=== PATIENT | male | born 1975 | race Caucasian/White ===

== ENCOUNTER → 2018-12-20 | Outpatient (CLI) | payer OTHER ==
--- NOTE | ~2018-12-20 | CON ---
[address] [address] CONSULTATION Name: APRILJEANNE Osborn Room: [facility]#: [id number] Admission: 12/20/18 Attend Phys: Ventura Reyes MD Discharge: Date of : 71 Report #: [id number] THIS REPORT FOR: //name// CC: Ventura Payne DATE OF SERVICE: 12/20/2018 REFERRING PHYSICIANS: Include Dr. Raleigh Pop as well as Dr. Ty from [facility], Dr. Aleta Hastings and Dr. Taty Payne. 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 HISTORY OF PRESENT ILLNESS: The patient indicated he had bright red blood per rectum since about 10/2018. He denied having any significant pain when he had a bowel movement, though he had more frequent bowel movements. He went on to undergo a colonoscopy by Dr. Pop and that revealed an ulcerated partially obstructing large mass in the rectum. The mass was circumferential. Dr. Pop was not able to pass the colonoscope through the narrowed lumen, so he changed to a smaller endoscope. The mass measured about 14 cm in length. It started about 2 cm above the dentate line and then extended to about 16 cm from the dentate line and then it was biopsied and the pathology revealed an invasive moderately differentiated adenocarcinoma. The patient had an abdominal pelvic CT on 12/11/2018 and that revealed circumferential wall thickening of the rectum. There were scattered perirectal and presacral lymph nodes seen, the largest was 1 cm. The patient indicated that he saw the colorectal surgeon, Dr. Hastings and the plan was to proceed with preoperative chemoradiotherapy followed by resection and he said that Dr. Hastings was going to schedule a chest CT and a pelvic MRI, presents to discuss the role of radiation therapy. PAST MEDICAL HISTORY AND PAST SURGICAL HISTORY: The patient has had some anemia, has had arthroscopy operation on his knees about 25 years ago. MEDICATIONS: MiraLax as needed. FAMILY HISTORY: Mother had congestive heart failure. SOCIAL HISTORY: The patient is a security director. He has a son and a daughter. He is . Cigarettes, he does not smoke cigarettes. REVIEW OF SYSTEMS: GENERAL: He denied having fevers or chills. SKIN: The patient denied having any color changes or itching. LYMPH NODES: The patient denied having enlarged or painful glands in the neck. ENDOCRINE: The patient denied [place] [address] CONSULTATION Name: JEANNE CHEN Room: [facility]#: [id number] Admission: 12/20/18 Attend Phys: Ventura Reyes MD Discharge: Date of : 71 Report #: [id number] HEMATOLOGY/IMMUNOLOGY: The patient has anemia from rectal bleeding. MUSCULOSKELETAL: The patient has arthritis. HEAD AND NECK: The patient denied having any headaches, migraines. RESPIRATORY: The patient denied having any shortness of breath or cough. CARDIOVASCULAR: The patient denied having any palpitations. GASTROINTESTINAL: The patient does still have some bright red blood per rectum. NEUROLOGIC: He denied having focal weakness. PHYSICAL EXAMINATION: VITAL SIGNS: Height 5 feet 10 inches, weight 304.8 pounds, blood pressure 142/84, pulse 79, oxygen saturation 97%, respirations 16. LYMPH NODES: No palpable cervical, supraclavicular or inguinal lymphadenopathy. EYES: Pupils are equal, round, react to light and accommodation. GENERAL: The patient was alert, oriented, in no acute distress. LYMPH NODES: He had no palpable cervical, supraclavicular or inguinal lymphadenopathy. HEAD, EYE, EAR, NOSE AND THROAT: Mouth had no visible lesions. HEART: Had a regular rate and rhythm without murmur. LUNGS: Clear to auscultation. ABDOMEN: Nontender. Spleen was not palpable. Liver was at the costal margin. EXTREMITIES: Had no clubbing, cyanosis or edema. NEUROLOGIC: Cranial nerves 2-12 are intact. Sensation was intact. RECTAL: On rectal examination, the patient had a palpable mass approximately 2-3 cm from the anal verge. I cannot feel above the mass since my finger was not long enough. The patient was guaiac positive. Using [employer] Hemoccult cards from lot number [id number] that in 12/2019, using Hemoccult developer from lot [id number] that expires in 2019. LABORATORY DATA: The patient's CEA was 9.0, so it was elevated and this was from 12/09/2018. Otherwise, his white blood count was 8.6, hemoglobin 11.1, platelets 426,000. BUN 13, creatinine 0.97, sodium 138, potassium 3.8. AST 12, ALT 9. ASSESSMENT AND PLAN: The patient looks like he has a locally advanced colorectal cancer. He said that his colorectal surgeon was planning a chest CT and a pelvic MRI. The patient was offered radiation therapy as part of preoperative radiation therapy with consideration for concurrent chemotherapy followed by surgical resection. This is based on the [place] Rect[facility] Study Group whose results are published in 2003. This is a phase 3 trial with patients with rectal cancer. There were T3-T4 or lymph node positive and they randomized to preoperative chemoradiotherapy versus postoperative chemoradiotherapy and the preoperative chemoradiotherapy had 5-year local recurrence rate of 6% versus 13% for postoperative chemoradiotherapy and there were less side effects with the preoperative chemoradiotherapy. So, the risks, benefits and logistics of radiation therapy explained to the patient in detail. The patient gave his witnessed informed consent [place] [address] CONSULTATION Name: JEANNE CHEN Room: [facility]#: [id number] Admission: 12/20/18 Attend Phys: Ventura Reyes MD Discharge: Date of : 71 Report #: [id number] therapy and he will be scheduled for simulation. Thank you for this consult. Fertility was also discussed with the patient. He was not interested in having more children. He was not interested in sperm banking. Again, thank you for this consult. By: [id number] Reyes MD /tone
== END ==
LOC: M.RTH 14:00
DX: C20 Malignant neoplasm of rectum (principal)